=== PATIENT | male | born 1975 | race Asian ===

== ENCOUNTER 2018-06-04 20:18 | Emergency (ER) | payer BC, OTHER ==
[~2018-06-04] VITALS: Ht 175.3 cm; Wt 77.3 kg
[2018-06-04 20:40] VITALS: Ht 175.3 cm; Wt 77.3 kg
--- NOTE | 2018-06-05 00:05 | ERD ---
ER Documentation Chief Complaint Chief Complaint LEFT FOOT X 2 WEEKS HPI The patient is a 43-year-old male, presenting to the ER because of acute left foot pain/swelling intermittently for the last 2 weeks, worse today. He denies fever, chills, neck pain, chest pain, dyspnea, abdominal pain, vomiting, dysuria, diarrhea. He smokes and drinks socially, denies any recent of traveling Medical history: Gout Past surgical history: Appendectomy ROS All systems reviewed and are negative except as per history of present illness. Medications Home Meds Active Scripts Ibuprofen* (Motrin*) 600 Mg Tab, 600 MG PO Q6H PRN for PAIN AND OR ELEVATED TEMP, #30 TAB Prov:CHIARA DE ANDA MD 06/05/18 Hydrocodone/Acetaminophen (Warren 5-325 Tablet) 1 Each Tablet, 1 TAB PO Q6H PRN for PAIN, #7 TAB Prov:CHIARA DE ANDA MD 06/05/18 Cephalexin* (Keflex*) 500 Mg Capsule, 500 MG PO QID for 10 Days, CAP Prov:CHIARA DE ANDA MD 06/05/18 Allergies Allergies: Coded Allergies: No Known Allergy (Unverified , 06/05/18) Physical Exam Vitals Vital Signs Date Temp Pulse Resp B/P (MAP) Pulse Ox O2 O2 Flow FiO2 Time Delivery Rate 06/05/18 68 16 133/87 98 Room Air 00:55 (102) 06/04/18 98.1 105 18 160/93 97 20:40 (115) Physical Exam Const: No acute distress. Head: Atraumatic. Eyes: Normal Conjunctiva. ENT: Normal External Ears, Nose and Mouth. Neck: Full range of motion. No meningismus. Resp: Clear to auscultation bilaterally. Cardio: Regular rate and rhythm. Abd: Soft, non distended, normal bowel sounds, non tender. Skin: No petechiae or rashes. Back: No midline or flank tenderness. Ext: Left foot is edematous, erythematous, warm to touch, vague left calf tenderness, minimal discomfort at the first metatarsophalangeal joint Neur: Awake and alert. No focal deficit Psych: Normal Mood and Affect. Result Diagram: 06/05/180 06/05/18 003 Results 24 hrs Laboratory Tests Test 06/05/18 00:30 White Blood Count 10.3 10^3/ul Red Blood Count 4.01 10^6/ul Hemoglobin 13.1 g/dl Hematocrit 40.1 % Mean Corpuscular Volume 100.0 fl Mean Corpuscular Hemoglobin 32.7 pg Mean Corpuscular Hemoglobin Concent 32.7 g/dl Red Cell Distribution Width 11.5 % Platelet Count 249 10^3/UL Mean Platelet Volume 9.0 fl Immature Granulocytes % 0.600 % Neutrophils % 58.0 % Lymphocytes % 29.7 % Monocytes % 7.5 % Eosinophils % 3.9 % Basophils % 0.3 % Nucleated Red Blood Cells % 0.0 /100WBC Immature Granulocytes # 0.060 10^3/ul Neutrophils # 6.0 10^3/ul Lymphocytes # 3.1 10^3/ul Monocytes # 0.8 10^3/ul Eosinophils # 0.4 10^3/ul Basophils # 0.0 10^3/ul Nucleated Red Blood Cells # 0.0 10^3/ul Erythrocyte Sedimentation Rate 72 mm/Hr Sodium Level 140 mmol/L Potassium Level 4.0 mmol/L Chloride Level 104 mmol/L Carbon Dioxide Level 23 mmol/L Anion Gap 13 Blood Urea Nitrogen 14 mg/dl Creatinine 1.22 mg/dl Est Glomerular Filtrat Rate mL/min > 60 mL/min Glucose Level 102 mg/dl Uric Acid 7.8 mg/dl Calcium Level 9.9 mg/dl Current Medications Medications Dose Sig/Ani Start Time Status Last (Trade) Ordered Route PRN Stop Time Admin Dose Reason Admin Ketorolac 30 mg ONCE STAT 06/05/18 DC 06/05/18 Tromethamine IV 00:13 00:35 (Toradol) 06/05/18 00:19 Calcium 1,000 mg ONCE ONCE 06/05/18 Cancel Chloride IV 01:30 (Ca Chloride 06/05/18 01:31 10% Syg) Cefazolin 50 ml @ ONCE IVPB 06/05/18 Sodium 100 mls/hr 02:30 06/05/18 02:59 Procedures/[place] [id number] Radiology Main Line: [phone] DIAGNOSTIC IMAGING REPORT Patient: RAEANN ALCANTARA : 1975 Age: 43 Sex: M MR #: [id number] DOS: 06/05/18 0013 Ordering MD: CHIARA DE ANDA MD Location: E/R Room/Bed: PROCEDURE: US left Lower extremity Venous. CLINICAL INDICATION: Left lower extremity pain. TECHNIQUE: Multiple sonographic images of the left lower extremity deep venous system was obtained utilizing kilpatrick scale, color-flow, compressive sonography and doppler imaging with augmentation. The images were reviewed on a PACS workstation. COMPARISON: None. FINDINGS: There is normal compressibility and flow within the left common femoral, deep femoral, superficial femoral, posterior tibial, peroneal and popliteal veins. IMPRESSION: No sonographic evidence for left lower extremity deep venous thrombosis. RPTAT: [facility] Les Krishna Physician Date Time Electronically viewed and signed by Physician Nilo on 06/05/2018 01:53 RS/ CC: CHIARA DE ANDA MD [id number] [place] [id number] Radiology Main Line: [phone] DIAGNOSTIC IMAGING REPORT Patient: RAEANN ALCANTARA : 1975 Age: 43 Sex: M MR #: [id number] DOS: 06/05/18 0013 Ordering MD: CHIARA DE ANDA MD Location: E/R Room/Bed: PROCEDURE: X-ray left foot. CLINICAL INDICATION: Pain and swelling in the left foot. Reference markers are directed towards the lateral and dorsum of the midfoot. TECHNIQUE: AP, lateral and oblique views of the left foot. COMPARISON: None. FINDINGS: No acute fracture or dislocation. Small plantar and posterior dorsal calcaneal enthesophytes. Mild soft tissue swelling over the dorsum of the left foot. Otherwise, the soft tissues are unremarkable. IMPRESSION: No acute fracture. RPTAT: [facility] R Stecher, Physician Date Time Electronically viewed and signed by Physician Nilo on 06/05/2018 01:52 RS/ CC: CHIARA DE ANDA MD [id number] MEDICAL MAKING DECISION: The patient is a 43-year-old male, presenting with acute left foot cellulitis, suspected with acute gout flareup. He was treated with Toradol 30 mg IV for pain, Ancef 1 g IV for cellulitis with good response, is above outpatient follow-up The differential diagnoses considered include but are not limited to cellulitis, abscess, acute gout, DVT, lymphedema Departure Diagnosis: Primary Impression: Cellulitis Additional Impression: Anemia Condition: Good Comments He was discharged with Keflex, 7 tablets of Warren 5 mg, Motrin The patient's blood pressure was elevated (>120/80) but appears stable without evidence of hypertension emergency or urgency. The patient was counseled about the risks of hypertension and urged to pursue outpatient monitoring and therapy within a week with their primary care physician. I discussed the findings with the patient. I advised the patient to follow-up with the primary physician in about 2-3 days, sooner if needed and return if any concern. Disclaimer: Inadvertent spelling and grammatical errors are likely due to [employer]/dictation software use and do not reflect on the overall quality of patient care. Also, please note that the electronic time recorded on this note does not necessarily reflect the actual time of the patient encounter. CHIARA DE ANDA MD Jun 05, 2018 00:05
[2018-06-05] MEDS ORDERED: KETOROLAC 30 MG INJ IV STA (00:13)
[2018-06-05 00:55] VITALS: BP 133/87; PULSE 68; RESP 16
[2018-06-05] MEDS ORDERED: CA CHLORIDE 10% 10 ML SYRINGE IV ONE (01:30)
[2018-06-05] MEDS ORDERED: CEPH-443 PO (02:26)
[2018-06-05] MEDS ORDERED: HYDR-4011 PO (02:26)
[2018-06-05] MEDS ORDERED: IBUP-1542 PO (02:26)
[2018-06-05] MEDS ORDERED: CEFAZOLIN 1 GM/50 ML (PMX) 50 ML IVPB SCH (02:30)
== END 2018-06-05 03:08 | disposition home or self-care (01) ==
LOC: E/R 20:18
DX: L03.116 Cellulitis of left lower limb (principal); D64.9 Anemia, unspecified
CPT/HCPCS: 73630; 80048; 84560; 85025; 85651; 93971; 96374; 96375; 99285; J0690; J1885